=== PATIENT | male | born 1980 | race Two or more races ===

== ENCOUNTER 2025-06-01 09:15 | Emergency (ER) | payer SELFPAY ==
[2025-06-01 09:31] VITALS: BP 153/92; PULSE 63; RESP 18; TEMP 37; O2SAT 97; BMI 33.4
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
[2025-06-01 12:09] VITALS: BP 155/82; PULSE 68; RESP 19; TEMP 37.1; O2SAT 98
== END 2025-06-01 12:26 | disposition home or self-care (01) ==
LOC: SERX 11:03
PROVIDERS: Emergency Provider Family Medicine
DX: S13.4XXA Sprain of ligaments of cervical spine, initial encounter (principal); M75.31 Calcific tendinitis of right shoulder; R51.9 Headache, unspecified; V69.9XXA Occupant (driver) (passenger) of heavy transport vehicle injured in unspecified traffic accident, initial encounter; Y92.410 Unspecified street and highway as the place of occurrence of the external cause
CPT/HCPCS: 70450; 72072; 72125; 73030; 99284